=== PATIENT | male | born 1995 | race Two or more races ===

== ENCOUNTER 2017-07-21 10:25 | Emergency (ER) | payer OTHER ==
[~2017-07-21] VITALS: Ht 170.2 cm; Wt 85.9 kg
[2017-07-21 13:31] LABS: APPEARANCE CLEAR ((CLEAR)); BILIRUBIN NEGATIVE; BLOOD NEGATIVE; COLOR STRAW ((YELLOW)); GLUCOSE (STRIP) NEGATIVE; KETONES NEGATIVE; LEUKOCYTES NEGATIVE; NITRITE NEGATIVE; PROTEIN (STRIP) NEGATIVE; SPECIFIC GRAVITY 1.015 (1.000-1.030); UCUL ADDED? NO; UROBILINOGEN 0.2 MG/DL (0.2-1.0)
[2017-07-21 13:37] LABS: HEMATOCRIT 48.5 % (38.0-50.0); HEMOGLOBIN 16.2 G/DL (12.5-16.6); MCH 28.2 PG (29.0-34.0); MCHC 33.4 G/DL (30.0-36.0); MCV 84.3 FL (86-99); PLATELET COUNT 281 K/uL (156-360); RBC DIS.WIDTH-CV 13.2 % (11.8-14.6); RED BLOOD COUNT 5.75 M/uL (4.00-5.50); WHITE BLOOD COUNT 11.4 K/uL (4.1-10.2)
[2017-07-21 13:46] LABS: CHLORIDE 105 mEq/L (99-109); SODIUM 139 mEq/L (136-147)
[2017-07-21 13:48] LABS: GLUCOSE 88 mg/dL (70-99)
[2017-07-21 13:52] LABS: CREATININE 0.8 mg/dL (0.6-1.3); GFR ESTIMATE (CALCULATED) > 59 mL/min/ (58.99-99999)
[2017-07-21 13:53] LABS: UREA NITROGEN (BUN) 11 mg/dL (9-23)
[2017-07-21] MEDS ORDERED: MIRALAX119 GM PO (14:12)
[2017-07-21 14:23] VITALS: BP 123/72
== END 2017-07-21 15:03 | disposition home or self-care (01) ==
LOC: EME 10:25
PROVIDERS: Emergency Medicine
DX: K59.00 Constipation, unspecified (principal); N50.812 Left testicular pain
CPT/HCPCS: 74176; 76870; 80048; 81003; 85027; 99281; 99284; J1885; J7030